=== PATIENT | female | born 2005 | race Caucasian/White ===

== ENCOUNTER → 2024-09-02 | Outpatient (CLI) | payer OTHER, SELFPAY ==
--- NOTE | 2024-09-02 13:45 | CT_ITS ---
PROCEDURE: SINUS/FACIAL BONE REASON FOR EXAM: Chronic sinusitis. TECHNIQUE: CT of the paranasal sinuses without contrast. CONTRAST: Without COMPARISON: None. FINDINGS: Frontal: Frontal sinuses and frontoethmoidal recesses appear clear. Ethmoid: Ethmoid air cells appear clear. Sphenoid: Sphenoid sinuses and sphenoethmoidal recesses appear clear. Maxillary: Maxillary sinuses appear clear. The ostiomeatal units appear widely patent. Turbinates: Unremarkable. Nasal Septum: Nasal septal deviation towards the left side of the midline. Mastoids/Middle Ears: Clear at visualized levels. Visualized intracranial structures are unremarkable. No suspicious contrast enhancement. CT/Sinus/Facial Bone IMPRESSION: No evidence of sinusitis. One or more dose reduction techniques were used (e.g., Automated exposure contr ol, adjustment of the mA and/or kV according to patient size, use of iterative reconstruction technique). Reading Location: [id number]
== END | disposition home or self-care (01) ==
PROVIDERS: PCP Pediatrics; Referring Provider Otolaryngology; Visit Provider Otolaryngology
DX: J32.9 Chronic sinusitis, unspecified (principal)
CPT/HCPCS: 70486